=== PATIENT | female | born 1945 | race Two or more races ===

== ENCOUNTER 2024-05-09 06:16 | Emergency (ER) | payer OTHER ==
[~2024-05-09] VITALS: Ht 157.5 cm; Wt 61.2 kg
[2024-05-09] MEDS ORDERED: LOSARTAN POTASS50 MG PO (07:10)
[2024-05-09] MEDS ORDERED: HYDRALAZINE HCL10 MG PO (07:10)
[2024-05-09] MEDS ORDERED: CEFTRIAXONE SODIUM 1,000 MG VIAL IM STA (09:05)
== END 2024-05-09 09:15 | disposition home or self-care (01) ==
LOC: ER 06:19
DX: H10.33 Unspecified acute conjunctivitis, bilateral (principal); Z88.0 Allergy status to penicillin; Z91.013 Allergy to seafood; I10 Essential (primary) hypertension
CPT/HCPCS: 96372; 99282; J0696

== ENCOUNTER 2024-09-04 10:56 | Outpatient (CLI) | payer OTHER ==
[~2024-09-04 10:56] MED LIST: HYDRALAZINE HCL10 MG PO; LOSARTAN POTASS50 MG PO
== END 2024-09-04 11:01 | disposition home or self-care (01) ==
LOC: TOM 10:56
PROVIDERS: ATTEND Internal Medicine Pulmonary Disease
DX: R06.02 Shortness of breath (principal)